=== PATIENT | female | born 1970 | race Caucasian/White ===

== ENCOUNTER 2023-12-19 06:09 | Day surgery (SDC) | payer OTHER ==
[~2023-12-19] VITALS: Ht 144.8 cm; Wt 60.8 kg
[2023-12-19] MEDS ORDERED: fentaNYL citrate 0.05 MG/ML VIAL ONE (07:38)
[2023-12-19] MEDS: fentaNYL citrate 0.05 MG/ML VIAL IVP ONE (07:52)
[2023-12-19] MEDS: LIDOCAINE 2% 100 MG/5 ML UJET TP ONE (07:59)
== END 2023-12-19 09:05 | disposition home or self-care (01) ==
LOC: MDS 06:09 → MMU 06:41 → MDS 09:05
PROVIDERS: ATTEND Internal Medicine Gastroenterology
DX: Z12.11 Encounter for screening for malignant neoplasm of colon (principal); I10 Essential (primary) hypertension; E11.9 Type 2 diabetes mellitus without complications; E78.00 Pure hypercholesterolemia, unspecified; Z98.891 History of uterine scar from previous surgery; Z79.899 Other long term (current) drug therapy; Z98.890 Other specified postprocedural states
CPT/HCPCS: 45378; 82948; J3010